=== PATIENT | female | born 1950 | race Caucasian/White ===

== ENCOUNTER 2016-05-15 12:23 | Outpatient (CLI) ==
[2016-05-15 13:32] LABS: BILIRUBIN,URINE Negative (NEGATIVE); KETONES,URINE Negative (NEGATIVE); LEUKOCYTE ESTERASE ,URINE Trace (NEGATIVE); NITRITE,URINE Negative (NEGATIVE); PH,URINE 6.5 (5-9); PROTEIN,URINE Negative (NEGATIVE); URINE, BLOOD Trace-intact (NEGATIVE)
[2016-05-15 13:35] LABS: BASOPHILS % (AUTO) 0.6 % (0.0-3.0); EOSINOPHILS # (AUTO) 0.2 K/ul (0.0-0.7); EOSINOPHILS % (AUTO) 4.8 % (0.0-7.0); HEMATOCRIT 44.8 % (37.0-47.0); HEMOGLOBIN 14.9 g/dl (12.0-16.0); IMMATURE GRANULOCYTE % (AUTO) 0.2 % (0.0-5.0); LYMPHOCYTES # (AUTO) 1.5 K/uL (0.60-3.4); LYMPHOCYTES % (AUTO) 31.5 (10.0-50.0); MEAN CORPUSCULAR HEMOGLOBIN 29.6 pg (27.0-31.0); MEAN CORPUSCULAR HGB CONC 33.3 (31.8-35.4); MEAN CORPUSCULAR VOLUME 88.9 fl (81.0-99.0); MONOCYTES # (AUTO) 0.4 K/uL (0.4-2.0); MONOCYTES % (AUTO) 8.3 (0-10); NEUTROPHILS # (AUTO) 2.6 K/ul (2.0-6.9); NEUTROPHILS % (AUTO) 54.6; PLATELET COUNT 208 10^3/uL (140-440); RED BLOOD COUNT 5.04 10^6/ul (4.20-5.40)
[2016-05-15 13:37] LABS: ADD URINE MICROSCOPIC YES
[2016-05-15 13:48] LABS: ALBUMIN 3.9 g/dL (3.4-5.0); ALBUMIN/GLOBULIN RATIO 1.22; ANION GAP 14.1; BILIRUBIN,TOTAL 0.56 mg/dL (0.00-1.20); BUN/CREATININE RATIO 24.39; CALCIUM 9.7 mg/dL (8.2-10.2); CHOL/HDL RATIO 4.2 (4.5-5.5); CREATININE 0.82 mg/dL (0.60-1.30); POTASSIUM 4.1 mmol/L (3.5-5.10); TOTAL PROTEIN 7.1 g/dL (5.8-8.1)
== END 2016-05-15 12:24 | disposition home or self-care (01) ==
LOC: LAB 12:23
PROVIDERS: ATTEND General Practice
DX: I10 Essential (primary) hypertension (principal); Z79.899 Other long term (current) drug therapy
CPT/HCPCS: 36415; 80053; 80061; 81001; 85025

== ENCOUNTER 2018-07-06 16:08 | Outpatient (CLI) | payer OTHER | END 2018-07-06 16:09 | disposition home or self-care (01) | LOC: RHC-LAB 16:08 | PROVIDERS: ATTEND General Practice | DX: I10 Essential (primary) hypertension (principal); E04.9 Nontoxic goiter, unspecified; Z79.899 Other long term (current) drug therapy | CPT/HCPCS: 36415; 80053; 81001; 84443; 85025; 87086 ==

== ENCOUNTER 2018-07-08 14:28 | Outpatient (CLI) | payer OTHER ==
--- NOTE | 2018-07-08 15:10 | US ---
EXAM: Thyroid ultrasound History: Enlarged thyroid. Technique: Multiple sonographic images through the thyroid gland were obtained. Color duplex Dopple r was used to interrogate vascular flow. Findings: The right lobe of the thyroid measures 6.6 cm x 3.5 cm x 2.3 cm and demonstrates heterogeneous echote xture with multiple nodules with the largest being complex and measuring 2.1 cm. The thyroid isthmus measures 1.4 cm in thickness. The left lobe of the thyroid measures 6.0 cm x 3.3 cm x 2.3 cm and demonstrates heterogeneous echotex ture with multiple nodules with the largest being complex measuring 2.2 cm. No extrathyroidal masses are identified. The thyroid gland is hypervascular. Impression: Enlarged multinodular hypervascular thyroid gland.
== END 2018-07-08 14:29 | disposition home or self-care (01) ==
LOC: RAD 14:28
PROVIDERS: ATTEND General Practice
DX: E04.9 Nontoxic goiter, unspecified (principal)